=== PATIENT | female | born 1985 | race Caucasian/White ===

== ENCOUNTER 2018-09-28 14:22 | Outpatient (REF) | payer MEDICAID, SELFPAY ==
--- NOTE | 2018-09-28 13:40 | PAPFT_PTH ---
PATIENT: Shilpa Tolbert LOC: [facility] U#:[id number] AGE/SX: 33/F ROOM: RE09/28/[address]: JENN Lazaro : 1985 BED: DIS: 09/28/2018 SPEC #: [id number] RECD: 09/28/18 16:39 STATUS: KERVIN REQ #: [id number] RACHEL: 09/28/18 13:[address]: Chelsea Lopez DEPT: [facility] Cytology RECD BY: Vik Scott ENTERED: 09/28/18 16:39 SP TYPE: PAPFT OTHR DR: Aman Madrid MD Tissues: 1 - CX/ENDOCX FOR PAP SMEARS Procedures: PAP THIN PREP/UVM Screening HPV DNA PROBE Comments: [id number]
[2018-10-02 14:38] LABS: Chlamydia Result Negative; GC Result Negative; Specimen Description CERVIX
== END 2018-09-28 14:42 ==
LOC: LBN 14:22
PROVIDERS: PCP Family Medicine; Visit Provider Nurse Practitioner Family
DX: Z11.3 Encounter for screening for infections with a predominantly sexual mode of transmission (principal); Z12.4 Encounter for screening for malignant neoplasm of cervix; Z11.51 Encounter for screening for human papillomavirus (HPV)
CPT/HCPCS: 87491; 87591; 88142; 87624

== ENCOUNTER 2018-11-14 08:37 | Outpatient (CLI) | payer MEDICAID, SELFPAY ==
[2018-11-14 12:22] LABS: Abs Immature Grans 0.02 k/cumm (0.0-0.09); Absolute Basophil Count 0.02 k/cumm (0.0-0.2); Absolute Lymphocyte Count 1.25 k/cumm (1.2-3.4); Absolute Monocyte Count 0.34 k/cumm (0.11-0.7); Absolute Neutrophil Count 5.61 k/cumm (1.2-6.7); Basophils % 0.3; Eosinophils % 1.4; HCT 44.1 % (36.0-46.0); HGB 14.6 g/dL (12.0-15.5); Immature Grans % 0.3; Mean Corp. HGB Concentration 33.1 g/dL (32.0-36.0); Mean Corpuscular Hemoglobin 32.3 pg (27.0-33.0); Mean Corpuscular Volume 97.6 fL (80-95); Mean Platelet Volume 11.1 fL (8.0-11.0); Monocytes % 4.6; Neutrophils % 76.4; Platelet Count 237 x1000/uL (130-400); RBC 4.52 m/cumm (4.00-5.20); RBC Distribution Width 13.1 % (11.7-14.6); White Blood Cell Count 7.34 k/cumm (4.4-10.8)
[2018-11-14 13:29] LABS: Iron 54 ug/dL (50-175); Total Iron Binding Capacity 341 ug/dL (250-450); Transferrin Sat 16 % (15-50)
[2018-11-14 13:50] LABS: ALT 39 U/L (12-78); AST 41 U/L (15-37); Albumin 3.4 g/dL (3.4-5.0); Alkaline Phosphatase 166 U/L (46-116); Anion Gap 10.7 mmol/L (3-11); BUN 21 mg/dL (7-18); Bilirubin, Total 0.2 mg/dL (0.2-1.0); CO2 25.3 mmol/L (21.0-32.0); CREATININE 1.05 mg/dL (0.55-1.02); Calcium 9.2 mg/dL (8.5-10.1); Chloride 102 mmol/L (98-107); Cholesterol 187 mg/dL (50-200); Estimated GFR 59.99 (mL/min/1.73m2); Ferritin 45 ng/mL (8-388); Glucose 94 mg/dL (70-100); HDL Cholesterol 51 mg/dL (40-60); LDL CHOLESTEROL 95 mg/dL (<100); Potassium 4.5 mmol/L (3.5-5.1); Sodium 138 mmol/L (136-145); Total Protein 7.2 g/dL (6.4-8.2); Triglyceride 238 mg/dL (30-150)
== END 2018-11-14 08:57 ==
PROVIDERS: PCP Family Medicine; Visit Provider Internal Medicine
DX: I10 Essential (primary) hypertension (principal); K92.2 Gastrointestinal hemorrhage, unspecified
CPT/HCPCS: 36415; 80053; 80061; 83721; 82728; 83540; 83550; 85025

== ENCOUNTER 2024-07-31 16:35 | Outpatient (REF) | payer MEDICAID, SELFPAY ==
[2024-07-31 16:13] LABS: Abs Immature Grans 0.06 10^3/uL (0.0-0.06); Absolute Basophil Count 0.04 10^3/uL (0.0-0.2); Absolute Eosinophil Count 0.12 10^3/uL (0.0-0.7); Absolute Monocyte Count 0.42 10^3/uL (0.1-0.8); Absolute Neutrophil Count 5.08 10^3/uL (1.2-6.7); Basophils % 0.5 %; Eosinophils % 1.6 %; HCT 41.7 % (36.0-46.0); HGB 13.9 g/dL (11.2-15.7); Immature Grans % 0.8 %; Lymphocytes % 21.9 %; MCHC 33.3 % (32.0-36.0); MCV 93 fL (80-95); MPV 11.1 fL (8.0-11.0); Monocytes % 5.7 %; Neutrophils % 69.5 %; Platelet Count 332 10^3/uL (130-400); RBC 4.48 10^6/uL (3.93-5.22); RDW 13.8 % (11.7-14.6); RDW-SD 47.2 fL; WBC 7.32 10^3/uL (4.4-10.8)
[2024-07-31 17:20] LABS: Iron 45 ug/dL (50-170); Total Iron Binding Capacity 397 ug/dL (250-450); Transferrin Sat 11 % (15-50)
[2024-07-31 17:45] LABS: ALT 47 U/L (14-59); AST 38 U/L (15-37); Alkaline Phosphatase 244 U/L (46-116); Anion Gap 10.8 mmol/L (3-11); BUN 37 mg/dL (7-18); Bilirubin, Total 0.25 mg/dL (0.2-1.0); CO2 25.2 mmol/L (21.0-32.0); CREATININE 0.8 mg/dL (0.55-1.02); Chloride 104 mmol/L (98-107); Estimated GFR 95.46 (mL/min/1.73m2); Ferritin 39 ng/mL (8-252); Folate 4.7 ng/mL (8.6-20.0); Glucose 99 mg/dL (74-106); Potassium 4.7 mmol/L (3.5-5.1); Sodium 140 mmol/L (136-145); TSH 0.51 uIU/mL (0.36-3.74); Total Protein 7.7 g/dL (6.4-8.2); Vitamin B12 376 pg/mL (193-986)
== END 2024-07-31 16:36 | disposition home or self-care (01) ==
LOC: NCHCN 16:35
PROVIDERS: Visit Provider Student in an Organized Health Care Education/Training Program
DX: K92.1 Melena (principal); K59.09 Other constipation; F50.83 Pica in adults
CPT/HCPCS: 80053; 82607; 82728; 82746; 83540; 83550; 84443; 85025

== ENCOUNTER 2024-08-31 09:59 | Outpatient (REF) | payer MEDICAID, SELFPAY ==
[2024-09-05 08:09] LABS: Calprotectin <50.0 mcg/g
== END 2024-08-31 10:00 | disposition home or self-care (01) ==
LOC: NCHCN 09:59
PROVIDERS: PCP Student in an Organized Health Care Education/Training Program; Visit Provider Student in an Organized Health Care Education/Training Program
DX: K92.1 Melena (principal)
CPT/HCPCS: 82272; 82274; 83993; 87177

== ENCOUNTER 2024-09-04 15:31 | Outpatient (REF) | payer MEDICAID, SELFPAY ==
[2024-09-04 16:56] LABS: ALT 76 U/L (14-59); AST 39 U/L (15-37); Albumin 3.9 g/dL (3.4-5.0); Alkaline Phosphatase 179 U/L (46-116); Anion Gap 10.6 mmol/L (3-11); BUN 34 mg/dL (7-18); Bilirubin, Total 0.37 mg/dL (0.2-1.0); CO2 26.4 mmol/L (21.0-32.0); CREATININE 0.9 mg/dL (0.55-1.02); Chloride 106 mmol/L (98-107); Estimated GFR 82.88 (mL/min/1.73m2); Glucose 79 mg/dL (74-106); Potassium 3.9 mmol/L (3.5-5.1); Sodium 143 mmol/L (136-145); Total Protein 7.1 g/dL (6.4-8.2)
[2024-09-04 17:17] LABS: GGT 625 U/L (5-55)
== END 2024-09-04 15:32 | disposition home or self-care (01) ==
LOC: NCHCN 15:31
PROVIDERS: PCP Student in an Organized Health Care Education/Training Program; Visit Provider Student in an Organized Health Care Education/Training Program
DX: R74.8 Abnormal levels of other serum enzymes (principal); R79.89 Other specified abnormal findings of blood chemistry
CPT/HCPCS: 80053; 82746; 82977

== ENCOUNTER 2024-10-09 06:53 | Day surgery (SDC) | payer MEDICAID, SELFPAY ==
[2024-10-09 06:56] VITALS: BP 122/81; PULSE 85; RESP 16; O2SAT 99
== END 2024-10-09 06:54 ==
PROVIDERS: PCP Student in an Organized Health Care Education/Training Program; Visit Provider Student in an Organized Health Care Education/Training Program
DX: Z53.9 Procedure and treatment not carried out, unspecified reason (principal)

== ENCOUNTER 2024-10-26 09:29 | Day surgery (SDC) | payer MEDICAID, SELFPAY ==
[2024-10-26 09:44] VITALS: BP 116/81; PULSE 88; RESP 20; TEMP 36.9; O2SAT 97
[2024-10-26] MEDS: Lactated Ringers 1,000 ML 80 ML IV (10:06)
--- NOTE | 2024-10-26 10:11 | W.ANESPRE ---
General Info Date of Service Date Performed: 10/26/24 Height: 5 ft 5 in Weight: 83.5 kg Body Mass Index (BMI): 30.6 Surgical Procedure: Operation Date: 10/26/24 09:50 Proposed Procedure Side Surgeon issac ROSS MD Meds Allergies and Home Medications Allergies Allergy/AdvReac Type Severity Reaction Status Date / Time codeine AdvReac NAUSEA Verified 10/26/24 09:43 erythromycin base AdvReac NAUSEA Verified 10/26/24 09:43 ketorolac tromethamine (From AdvReac NAUSEA Verified 10/26/24 09:43 Toradol) tramadol AdvReac NAUSEA Verified 10/26/24 09:43 Home Medication ?Medication ?Instructions ?Recorded acetaminophen 500 mg tablet 500 mg PO BID PRN 09/17/24 (Tylenol Extra Strength) ascorbic acid (vitamin C) 500 mg mg PO DAILY 09/17/24 capsule gabapentin 300 mg capsule 300 mg PO TID 09/17/24 ibuprofen 600 mg tablet 600 mg PO Q8H PRN 09/17/24 mecobalamin (vitamin B12) 500 mcg 500 mcg PO DAILY 09/17/24 chewable tablet methadone 10 mg/5 mL oral solution 80 mg PO DAILY 09/17/24 bisacodyl 5 mg tablet,delayed 5 mg PO ONCE #4 tabs 10/12/24 release (Dulcolax (bisacodyl)) polyethylene glycol 3350 17 17 g PO ONCE #238 grams 10/12/24 gram/dose oral powder Current Visit Medications: Current Medications Generic Name Dose Route Start Last Admin Trade Name Freq PRN Reason Stop Dose Admin Ringer's Solution 1,000 mls @ 80 mls/hr 10/26/24 06:00 10/26/24 10:06 IV 10/26/24 23:59 80 mls/hr INFUSION DURAN Administration IV Miscellaneous Supplies 1 each 10/26/24 06:00 Iv Access IV 10/26/24 23:59 DIRECTED DURAN Sodium Chloride 0 ml 10/26/24 06:00 Normal Saline Flush 10 Ml Syr IV 10/26/24 23:59 PRN PRN Sodium Chloride 0 ml 10/26/24 06:00 Normal Saline 10 Ml Vial IJ 10/26/24 23:59 DIRECTED PRN Sterile Water 0 ml 10/26/24 06:00 Water,Injection,Sterile 10 Ml Vial IJ 10/26/24 23:59 DIRECTED PRN PFSH Active Problems Active Problems: Problem Status Onset Code Chronic constipation Acute K59.09 Pica Acute F50.89 Methadone use Acute F11.90 Hematochezia Acute K92.1 PTSD (post-traumatic stress disorder) Acute 06/23/17 F43.10 Attention deficit hyperactivity disorder (ADHD), predominantly inattentive type Acute 06/23/17 F90.0 Medical History Medical History Smoker Family history of breast cancer in mother per referral dx age 35 Opioid dependence Low back pain BPPV (benign paroxysmal positional vertigo) Family history of colon cancer in father Per referral age 50 in father Panic disorder (06/23/17) Surgical History Surgical History History of hysterectomy (~03/2024) S/P cholecystectomy Done at the time of the exploratory which was laparoscopy S/P exploratory laparotomy S/P tubal ligation Tobacco Smoking/Tobacco Use Status: Current every day Tobacco Type: cigarettes Alcohol Alcohol Intake: current Alcohol intake frequency: a few times a week Alcohol type: beer Substance Use Substance use: Current Sobriety Substance use type: former substance user Vital Signs and Lab Results Vital Signs Most Recent Vital Signs in EMR: Most Recent Vital Signs Temp Pulse Resp BP Pulse Ox 36.9 C 88 20 116/81 97 10/26/24 09:44 10/26/24 09:44 10/26/24 09:44 10/26/24 09:44 10/26/24 09:44 Lab Results Blood Type / Crossmatch: No Data to Display Complete Blood Count: No Data to Display Complete Metabolic Panel: No Data to Display Liver Function Panel: No Data to Display Coagulation Panel: No Data to Display Cardiac Panel: No Data to Display Arterial Blood Gas: No Data to Display Venous Blood Gas: No Data to Display Pancreas Panel: No Data to Display Thyroid Panel: No Data to Display Infectious Disease: No Data to Display Blood Cultures: No Data to Display Toxicology Panel: No Data to Display Panel: No Data to Display Anesthesia Assessment and Plan Anesthesia History Personal History: Other (panic attacks upon awakening) Family History: No Family History of Anesthesia Complications Exercise Tolerance Exercise Tolerance: Metabolic Equivalents>4 Pertinent Negatives Pertinent Negatives: No Symptoms of GERD, No Major Cardiovascular Symptoms or Complaints and No Major Pulmonary Symptoms or Complaints Cardiac & Pulmonary Exam Cardiac Exam: Normal S1/S2 Heart Sounds Pulmonary Exam: Clear Bilateral Breath Sounds Cardiac and Pulmonary Comment:: Smokers cough Implantable Cardiac Device Does patient have a Pacemaker or an ICD?: No Airway Exam Known Difficult Airway: No Mallampati Class: 3 Mouth Opening: Normal (> 3cm) Thyromental Distance: Greater than 3 cm Neck Range of Motion: Full ROM Neck Circumference: Normal Teeth Condition: Generalized Poor Dentition (only 2 teeth upper, many missing lower, some broken, none loose) ASA Classification ASA Score: ASA 3 Emergency Case?: No NPO Status NPO Status: NPO Clears >2 hours, Solids >8 hours Status Status: History of Hysterectomy Anesthesia Plan Resuscitation Status: Full Code Anesthesia Technique: General Anesthesia Airway Planned: Natural Airway Monitors Used: Standard Monitors
[2024-10-26 10:13] VITALS: BMI 30.6
--- NOTE | 2024-10-26 10:31 | W.PM.HP.N ---
Date of service: 10/26/24 Time of Service: 10:37 Assessment and Plan Assessment and plan (1) Hematochezia: Status: Acute Assessment and plan: 39-year-old female who is indicated for a colonoscopy due to her family history as well as her rectal bleeding. We discussed the procedure in detail. We discussed the risks of bleeding from biopsy sites, perforation of the colon, missing small lesions, amongst other things. We also talked about the possibility of hemorrhoid banding if she has some internal hemorrhoids that are clearly the source of the bleeding. She expressed understanding. She signed informed consent. She was instructed to take Dulcolax daily this week, which she has done and has had multiple bowel movements. She also has done a 2-day MiraLAX prep. She reports that everything is coming out liquid yesterday and today she has only passed gas. Will proceed with colonoscopy and possible hemorrhoid banding today as planned. (2) Colon cancer screening: Status: Acute Assessment and plan: See above (3) Chronic constipation: Status: Acute Assessment and plan: I instructed the patient to start taking 1 dose of MiraLAX 17 g daily going forward. If this does not allow her to have a bowel movement at least every 3 days, then she should take it twice daily. If she still does not get the desired outcome with this, then she needs to talk to her PCP about a gastroenterology referral. History of Present Illness Narrative: Patient is a 39-year-old woman who was sent over by her primary care provider. She has never had a colonoscopy. She reports chronic constipation. She typically has a bowel movement about once a week. She does strain to go. She gets crampy abdominal pains and rectal bleeding with most bowel movements. She sometimes has some bulges on the outside of the anus as well. This has been going on for many years. Sometimes when she is really struggling to have a bowel movement she has some nausea and vomiting as well. She denies loss of appetite or unintentional weight loss. She denies fevers, chills, night sweats. She reports family for history of colon cancer in her father who was diagnosed and around the age of 5454 years old. PFSH All Active Problems (Updated 10/26/24 @ 10:35 by Jessy ROSS MD) Colon cancer screening (Acute) Chronic constipation (Acute) Pica (Acute) Methadone use (Acute) Hematochezia (Acute) PTSD (post-traumatic stress disorder) (Acute 06/23/17) Attention deficit hyperactivity disorder (ADHD), predominantly inattentive type (Acute 06/23/17) Medical History Smoker Family history of breast cancer in mother per referral dx age 35 Opioid dependence Low back pain BPPV (benign paroxysmal positional vertigo) Family history of colon cancer in father Per referral age 50 in father Panic disorder (06/23/17) Surgical History History of hysterectomy (~03/2024) S/P cholecystectomy Done at the time of the exploratory which was laparoscopy S/P exploratory laparotomy S/P tubal ligation Family History Father Diabetes Colon cancer Sister Thyroid disorder Maternal Grandmother Diabetes Paternal Grandmother Diabetes Social History Smoking/Tobacco Use Status: Current every day Tobacco Type: cigarettes Tobacco: How many years used: 2 Quit status: considering quitting Smoking risk assessment performed?: Yes Alcohol Intake: current Alcohol Intake frequency: a few times a week Alcohol type: beer Drug use: Current Sobriety Substance use type: former substance user Housing: apartment Do you feel safe at home: Yes Do you feel safe in your relationship?: Yes Additional Social history: UTAP Meds Allergies and Home Medications Allergies Allergy/AdvReac Type Severity Reaction Status Date / Time codeine AdvReac NAUSEA Verified 10/26/24 09:43 erythromycin base AdvReac NAUSEA Verified 10/26/24 09:43 ketorolac tromethamine (From AdvReac NAUSEA Verified 10/26/24 09:43 Toradol) tramadol AdvReac NAUSEA Verified 10/26/24 09:43 Home Medications ?Medication ?Instructions ?Recorded ?Confirmed ?Type acetaminophen 500 mg tablet 500 mg PO BID PRN 09/17/24 10/26/24 History (Tylenol Extra Strength) ascorbic acid (vitamin C) 500 mg mg PO DAILY 09/17/24 09/17/24 History capsule gabapentin 300 mg capsule 300 mg PO TID 09/17/24 10/26/24 History ibuprofen 600 mg tablet 600 mg PO Q8H PRN 09/17/24 10/26/24 History mecobalamin (vitamin B12) 500 mcg 500 mcg PO DAILY 09/17/24 10/26/24 History chewable tablet methadone 10 mg/5 mL oral solution 80 mg PO DAILY 09/17/24 10/26/24 History bisacodyl 5 mg tablet,delayed 5 mg PO ONCE #4 tabs 10/12/24 10/26/24 Rx release (Dulcolax (bisacodyl)) polyethylene glycol 3350 17 17 g PO ONCE #238 grams 10/12/24 10/26/24 Rx gram/dose oral powder Exam Narrative Exam Narrative: General?lying in a stretcher in the preop area, no apparent distress, appears stated age HEENT?normocephalic, atraumatic. Mucous membranes moist. Sclera anicteric. Missing most of her upper front teeth. Neck?supple, no masses Respiratory?unlabored, no use of accessory muscles Heart?regular rate rhythm Abdomen?soft, nontender, nondistended Extremities?moves all extremities, ambulates independently Neuro-? grossly intact Psych?alert and oriented x 3, cooperative, answers questions appropriately Results Last Vital Signs Temp 36.9 C 10/26/24 09:44 Pulse 88 10/26/24 09:44 Resp 20 10/26/24 09:44 BP 116/81 10/26/24 09:44 Pulse Ox 97 10/26/24 09:44 Time Spent Time spent with Patient: <40 minutes Time was spent: preparing to see the patient(eg.review tests), counseling the patient and care coordination
[2024-10-26 11:02] VITALS: BP 110/72; PULSE 77; RESP 20; TEMP 36.4; O2SAT 98
[2024-10-26 11:19] VITALS: BP 104/65; PULSE 70; RESP 20; TEMP 36.5; O2SAT 95
--- NOTE | 2024-10-26 11:22 | ROE_ITS ---
Operative Note Operative Note PRE-OP DIAGNOSIS: Rectal bleeding, colon cancer screening POST-OP DIAGNOSIS: other (Incomplete colonoscopy) PROCEDURE: Colonoscopy SURGEON: Jessy COSTELLO ANESTHESIA TYPE: MAC Refer to Anesthesia Record COMPLICATIONS: Other (Patient's colon remains full of stool and I was unable to advance the colonoscope past 15 cm) Procedure Description: After obtaining informed consent, patient was brought back to the operating room. She was turned on the left side and connected to the monitors. Timeout was performed. I began by performing a digital rectal exam. This revealed some small soft external hemorrhoids that were not inflamed. I inserted the colonoscope into the rectum. I immediately noted formed stool. I remove the scope and disimpacted the rectum and the distal sigmoid of some formed firm stool. I reached up as high as I could. I reinserted the colonoscope and atte mpted to advance once again. I only went to about 15 cm and came upon a column of more formed stool. This was impassable. I aborted the procedure. I remove the scope. I did evaluate the anus closely at this point. She did not have any bulging internal hemorrhoids and no signs of a fissure and no signs of bleeding. I did not perform hemorrhoid banding as patient clearly needs to get her hat and cap sewer steven constipation under control before undertaking any hemorrhoid procedures. Disposition: Patient will be discharged home from the recovery area later today. I have placed a referral to [facility] gastroenterology. Date of Procedure: 10/26/24
--- NOTE | 2024-10-26 11:34 | W.ANESPOSTOP ---
Postoperative Evaluation Date, Time and Location Date Performed: 10/26/24 Time Performed: 11:04 Patient Location: Day Surgery Unit Vital Signs Most Recent Imported Vital Signs: Most Recent Vital Signs Temp Pulse Resp BP Pulse Ox 36.5 C 70 20 104/65 95 10/26/24 11:19 10/26/24 11:19 10/26/24 11:19 10/26/24 11:19 10/26/24 11:19 Pain Score Most Recent Pain Score: Most Recent Pain Score Pain Level 0 10/26/24 09:44 Assessment Mental Status: Awake (Alert & Oriented to Patient Baseline) Airway and Respiratory Function: Patent airway with normal (patient baseline) respiratory exam Cardiovascular Function: Hemodynamically Stable Hydration Status: Adequately Hydrated Nausea & Vomiting: No Nausea or Vomiting Pain: Pt. Denies Any Pain Peripheral Nerve Block: Patient did not receive a nerve block
== END 2024-10-26 11:36 | disposition home or self-care (01) ==
PROVIDERS: PCP Student in an Organized Health Care Education/Training Program; Visit Provider Surgery
PROC: 0DJD8ZZ Inspection of Lower Intestinal Tract, Via Natural or Artificial Opening Endoscopic (ICD-10-PCS; CPT 45378; principal; 2024-10-26 09:45)
DX: K92.1 Melena (principal); Z12.11 Encounter for screening for malignant neoplasm of colon; K59.09 Other constipation
CPT/HCPCS: 45378; J2003; J2405; J2704

== ENCOUNTER 2025-06-12 11:10 | Outpatient (REF) | payer MEDICAID, SELFPAY ==
[2025-06-17 10:22] LABS: Fentanyl Scr w/Rfx Confirm Negative ng/mL (<1)
== END 2025-06-12 11:11 | disposition home or self-care (01) ==
LOC: NCHCN 11:10
PROVIDERS: PCP Student in an Organized Health Care Education/Training Program; Visit Provider Student in an Organized Health Care Education/Training Program
DX: M54.32 Sciatica, left side (principal)
CPT/HCPCS: 80307